=== PATIENT | male | born 1970 | race Caucasian/White ===

== ENCOUNTER 2017-08-25 06:53 | Emergency (ER) | payer SELFPAY ==
[2017-08-25] MEDS ORDERED: FLUORESCEIN SODIUM 0.6 MG/WRAP ONE (07:06)
[2017-08-25] MEDS ORDERED: TETRACAINE HCL 0.5% 2ML OPTH ONE (07:06)
[2017-08-25] MEDS ORDERED: NEO/BAC/POLY/HC OPTH OINT ONE (07:32)
--- NOTE | 2017-08-25 07:32 | ER ---
Nurse's Notes [facility] Name: Daron Izaguirre Jr Age: 47 yrs Sex: Male : 1970 Arrival Date: 08/25/2017 Time: 06:58 Bed 20 Private MD: Diagnosis: Injury of conjunctiva and corneal abrasion without foreign body Presentation: 08/25 07:09 Presenting complaint: Patient states: last night felt something in right eye, does not iw remember injuring it, does not know what could be in his eye. Transition of care: patient was not received from another setting of care. Onset of symptoms was August 24, 2017. Initial Sepsis Screen: Does the patient meet any 2 criteria? No. Patient's initial sepsis screen is negative. Does the patient have a suspected source of infection? No. Patient's initial sepsis screen is negative. Care prior to arrival: None. 07:09 Method Of Arrival: Ambulatory iw 07:09 Acuity: ESTEFANI 4 iw Triage Assessment: 07:16 General: Appears in no apparent distress. uncomfortable, Behavior is calm, cooperative, hj appropriate for age. Pain: Complains of pain in right eye. Historical: - Allergies: 07:13 NKA; iw - Home Meds: 07:13 None [Active]; iw - PMHx: 07:13 None; iw - PSHx: 07:13 None; iw - Immunization history:: Last tetanus immunization: unknown. - Social history:: Smoking status: unknown. Screenin:16 Abuse screen: Denies threats or abuse. Denies injuries from another. Nutritional hj screening: No deficits noted. Tuberculosis screening: No symptoms or risk factors identified. Fall Risk None identified. Vital Signs: 07:13 BP 137 / 87; Pulse 59; Resp 16 S; Pulse Ox 95% on R/A; Pain 10/10; iw Visual Acuity: 07:26 Left Eye Visual acuity 20/40, Normal, React To Light, Reactive To Accomodation; Right hj Eye Visual acuity 20/70, Normal, React To Light, Reactive To Accomodation; Both Eyes Visual acuity 20/40; Without Lenses; ED Course: 06:58 Patient arrived in ED. ds1 07:08 Surinder Vega, ANISH is Primary Nurse. hj 07:10 Triage completed. iw 07:12 Alisha Ruiz FNP-C is PHCP. kb 07:12 Isaias Acharya MD is Attending Physician. kb 07:13 Arm band placed on. iw 07:17 Patient has correct armband on for positive identification. Bed in low position. Call hj light in reach. Side rails up X 1. Adult w/ patient. 07:40 No provider procedures requiring assistance completed. Patient did not have IV access hj during this emergency room visit. Administered Medications: 07:17 Drug: Tetracaine Drops 0.5 % 1 drops Route: Ophthalmic; Site: right eye; hj 07:32 Drug: Cwewtlir-Wtrozblekj-Imilxdalh 0.5 inches Route: Ophthalmic; Site: right eye; hj 07:34 Follow up: Response: No adverse reaction hj Outcome: 07:31 Discharge ordered by MD. kb 07:40 Discharged to home ambulatory. hj 07:40 Condition: stable 07:40 Discharge instructions given to patient, family, Instructed on discharge instructions, follow up and referral plans. medication usage, Demonstrated understanding of instructions, follow-up care, medications. 07:41 Patient left the ED. hj Signatures: Alisha Ruiz FNP-C FNP-Clarissa Rosas ds1 Helene Mccray, RN RN iw Surinder Vega, RN RN hj Corrections: (The following items were deleted from the chart) 07:16 07:15 Tetracaine Drops 0.5 % 1 drops Ophthalmic in left eye hj
--- NOTE | 2017-08-25 07:32 | EDPHYS ---
Physician Documentation [facility] Name: Daron Izaguirre Jr Age: 47 yrs Sex: Male : 1970 Arrival Date: 08/25/2017 Time: 06:58 Bed 20 Private MD: ED Physician Isaias Acharya HPI: 08/25 07:23 This 47 yrs old Male presents to ER via Ambulatory with complaints of Foreign kb Body In Eye. 07:23 The patient is experiencing foreign body sensation, pain, redness, The patient kb sustained None. to the right eye, caused by an unknown mechanism. Onset: The symptoms/episode began/occurred last night. Duration: the symptoms are continuous. Aggravated by blinking, light, opening eye, Alleviated by nothing. Associated signs and symptoms: Pertinent positives: None. Patient wears glasses, does not have glasses with him. Severity of symptoms: At their worst the symptoms were moderate in the emergency department the symptoms are unchanged. The patient has not experienced similar symptoms in the past. The patient has not recently seen a physician. Pt states he felt like something got into his eye last night, went to bed and this morning it was worse. States he didn't have any trauma to eye and didn't do anything that would make debris go into eye. . Historical: - Allergies: 07:13 NKA; iw - Home Meds: 07:13 None [Active]; iw - PMHx: 07:13 None; iw - PSHx: 07:13 None; iw - Immunization history:: Last tetanus immunization: unknown. - Social history:: Smoking status: unknown. ROS: 07:21 Constitutional: Negative for fever, chills, and weight loss, ENT: Negative for injury, kb pain, and discharge, Cardiovascular: Negative for chest pain, palpitations, and edema, Respiratory: Negative for shortness of breath, cough, wheezing, and pleuritic chest pain, Abdomen/GI: Negative for abdominal pain, nausea, vomiting, diarrhea, and constipation, MS/Extremity: Negative for injury and deformity, Skin: Negative for injury, rash, and discoloration, Neuro: Negative for headache, weakness, numbness, tingling, and seizure. 07:21 Eyes: Positive for foreign body sensation, pain, redness. Exam: 07:20 Constitutional: This is a well developed, well nourished patient who is awake, alert, kb and in no acute distress. Head/Face: Normocephalic, atraumatic. Chest/axilla: Normal chest wall appearance and motion. Nontender with no deformity. No lesions are appreciated. Cardiovascular: Regular rate and rhythm with a normal S1 and S2. No gallops, murmurs, or rubs. Normal PMI, no JVD. No pulse deficits. Respiratory: Lungs have equal breath sounds bilaterally, clear to auscultation and percussion. No rales, rhonchi or wheezes noted. No increased work of breathing, no retractions or nasal flaring. Abdomen/GI: Soft, non-tender, with normal bowel sounds. No distension or tympany. No guarding or rebound. No evidence of tenderness throughout. Skin: Warm, dry with normal turgor. Normal color with no rashes, no lesions, and no evidence of cellulitis. MS/ Extremity: Pulses equal, no cyanosis. Neurovascular intact. Full, normal range of motion. Neuro: Awake and alert, GCS 15, oriented to person, place, time, and situation. Cranial nerves II-XII grossly intact. Motor strength 5/5 in all extremities. Sensory grossly intact. Cerebellar exam normal. Normal gait. 07:20 Eyes: Periorbital structures: appear normal, Pupils: equal, round, and reactive to light and accomodation, Extraocular movements: intact throughout, Conjunctiva: injected, in the right eye, Corneas: abrasion, that is moderate sized, on the right, foreign body, is not appreciated, a fluorescein strip employed to appreciate the findings. Vital Signs: 07:13 BP 137 / 87; Pulse 59; Resp 16 S; Pulse Ox 95% on R/A; Pain 10/10; iw Visual Acuity: 07:26 Left Eye Visual acuity 20/40, Normal, React To Light, Reactive To Accomodation; Right hj Eye Visual acuity 20/70, Normal, React To Light, Reactive To Accomodation; Both Eyes Visual acuity 20/40; Without Lenses; MDM: 07:12 Patient medically screened. kb 07:21 Data reviewed: vital signs, nurses notes. Data interpreted: Pulse oximetry: on room air kb is 95 %. Interpretation: normal. 07:31 Counseling: I had a detailed discussion with the patient and/or guardian regarding: the kb historical points, exam findings, and any diagnostic results supporting the discharge/admit diagnosis, the need for outpatient follow up, an opthalmologist, to return to the emergency department if symptoms worsen or persist or if there are any questions or concerns that arise at home. 08/25 07:12 Order name: Eye Tray; Complete Time: 07:15 kb 08/25 07:12 Order name: Fluoresene Opth strip; Complete Time: 07:15 kb 08/25 07:12 Order name: Visual Acuity; Complete Time: 07:29 kb Administered Medications: 07:17 Drug: Tetracaine Drops 0.5 % 1 drops Route: Ophthalmic; Site: right eye; 07:32 Drug: Wwzfoduk-Rmqidypauq-Riicuutmo 0.5 inches Route: Ophthalmic; Site: right eye; 07:34 Follow up: Response: No adverse reaction Disposition: 08/25/17 07:31 Discharged to Home. Impression: Injury of conjunctiva and corneal abrasion without foreign body. - Condition is Stable. - Discharge Instructions: Corneal Abrasion, [id number]. - Medication Reconciliation Form, Thank You Letter, Antibiotic Education, Prescription Opioid Use form. - Follow up: Emergency Department; When: As needed; Reason: Worsening of condition. Follow up: Private Physician; When: 2 - 3 days; Reason: Recheck today's complaints, Continuance of care, Re-evaluation by your physician. Addendum: 08/27/2017 09:36 Co-signature as Attending Physician, Isaias Acharya MD I agree with the assessment and w a plan of care. Signatures: Alisha Ruiz, [employer]-Ckb Helene Mccray RN RN Surinder Vega RN RN hj Appiah, William, MD MD ny Corrections: (The following items were deleted from the chart) 08/25 07:29 07:23 Patient does not utilize any form of vision correction [facility] 07:30 07:20 Eyes: Periorbital structures: appear normal, Pupils: equal, round, and reactive kb to light and accomodation, Extraocular movements: intact throughout, Conjunctiva: injected, in the right eye, Corneas: abrasion, that is small, foreign body, is not appreciated, a fluorescein strip employed to appreciate the findings, 07:35 07:23 Patient wears glasses, [facility] 07:41 07:31 08/25/2017 07:31 Discharged to Home. Impression: Injury of conjunctiva and hj corneal abrasion without foreign body. Condition is Stable. Forms are Medication Reconciliation Form, Thank You Letter, Antibiotic Education, Prescription Opioid Use. Follow up: Emergency Department; When: As needed; Reason: Worsening of condition. Follow up: Private Physician; When: 2 - 3 days; Reason: Recheck today's complaints, Continuance of care, Re-evaluation by your physician. kb
== END 2017-08-25 07:41 | disposition home or self-care (01) ==
LOC: ER 06:53
DX: S05.01XA Injury of conjunctiva and corneal abrasion without foreign body, right eye, initial encounter (principal)
CPT/HCPCS: 99283